=== PATIENT | male | born 1970 | race Caucasian/White ===

== ENCOUNTER 2016-12-26 14:32 | Emergency (ER) | payer BC ==
[~2016-12-26] VITALS: Ht 180.3 cm; Wt 109.1 kg
[~2016-12-26 14:32] MED LIST: COLACE 100100 MG/CAP PO; FLOMAX 0.40.4 MG/CAP PO; NO HOME MEDICATONS; NORCO 325 MG-51 TAB PO; ZOFRAN 4MG T4 MG/TAB PO
[2016-12-26 14:35] VITALS: BP 193/93; TEMP 97.9
[2016-12-26 15:38] VITALS: PULSE 70
== END 2016-12-26 15:39 | disposition home or self-care (01) ==
LOC: COL.ER 14:32
DX: S01.01XA Laceration without foreign body of scalp, initial encounter (principal); W22.09XA Striking against other stationary object, initial encounter; Y92.89 Other specified places as the place of occurrence of the external cause

== ENCOUNTER 2017-01-03 09:58 | Emergency (ER) | payer BC ==
[2017-01-03 10:01] VITALS: BP 148/79; PULSE 87; TEMP 98.1
== END 2017-01-03 10:11 | disposition home or self-care (01) ==
LOC: COL.ER 09:58
DX: Z48.02 Encounter for removal of sutures (principal)

== ENCOUNTER 2022-01-22 15:00 | Outpatient (RCR) | payer SELFPAY | END 2022-02-10 | disposition home or self-care (01) | LOC: MKS.ESL.PT | DX: S06.890S Other specified intracranial injury without loss of consciousness, sequela (principal) ==

== ENCOUNTER 2022-05-10 13:30 | Outpatient (RCR) | payer OTHER | END 2022-05-13 | disposition home or self-care (01) | LOC: MKS.ESL.PT | DX: M54.6 Pain in thoracic spine (principal) ==